=== PATIENT | female | born 1955 | race Native Hawaiian/Other Pacific Islander ===

== ENCOUNTER 2019-04-03 13:06 | Outpatient (CLI) | payer OTHER | END 2019-04-03 19:46 | disposition home or self-care (01) | LOC: RAD 13:06 | DX: M25.511 Pain in right shoulder (principal) ==

== ENCOUNTER 2020-06-01 10:03 | Outpatient (CLI) | payer OTHER | END 2020-06-01 20:55 | disposition home or self-care (01) | LOC: US 10:03 → RAD 10:03 | PROVIDERS: ATTEND Family Medicine | DX: I73.9 Peripheral vascular disease, unspecified (principal); M54.17 Radiculopathy, lumbosacral region ==

== ENCOUNTER 2020-06-10 14:33 | Outpatient (CLI) | payer OTHER | END 2020-06-10 20:02 | disposition home or self-care (01) | LOC: US 14:33 | PROVIDERS: ATTEND Nurse Practitioner Family | DX: I73.9 Peripheral vascular disease, unspecified (principal) ==

== ENCOUNTER 2020-06-25 08:29 | Outpatient (CLI) | payer OTHER | END 2020-06-25 20:52 | disposition home or self-care (01) | LOC: US 08:29 | PROVIDERS: ATTEND Student in an Organized Health Care Education/Training Program | DX: N28.89 Other specified disorders of kidney and ureter (principal) ==

== ENCOUNTER 2020-07-14 10:27 | Outpatient (CLI) | payer OTHER | END 2020-07-14 22:11 | disposition home or self-care (01) | LOC: MRI 10:27 | PROVIDERS: ATTEND Nurse Practitioner Family | DX: M47.896 Other spondylosis, lumbar region (principal) ==

== ENCOUNTER 2020-07-28 07:53 | Outpatient (CLI) | payer OTHER | END 2020-07-28 22:35 | disposition home or self-care (01) | LOC: US 07:53 | PROVIDERS: ATTEND Nurse Practitioner Family | DX: N28.1 Cyst of kidney, acquired (principal) ==

== ENCOUNTER 2020-09-02 12:21 | Outpatient (CLI) | payer OTHER | END 2020-09-02 20:29 | disposition home or self-care (01) | LOC: CT 12:21 | PROVIDERS: ATTEND Nurse Practitioner Family | DX: N28.1 Cyst of kidney, acquired (principal) | CPT/HCPCS: 36415; 82565; 84520 ==

== ENCOUNTER 2020-09-14 15:48 | Outpatient (CLI) | payer OTHER | END 2020-09-14 19:29 | disposition home or self-care (01) | LOC: RAD 15:48 | PROVIDERS: ATTEND Nurse Practitioner Family | DX: J18.9 Pneumonia, unspecified organism (principal) ==

== ENCOUNTER 2020-09-21 13:18 | Outpatient (CLI) | payer OTHER | END 2020-09-21 22:08 | disposition home or self-care (01) | LOC: US 13:18 | PROVIDERS: ATTEND Nurse Practitioner Primary Care | DX: R60.0 Localized edema (principal) ==

== ENCOUNTER 2020-09-24 12:10 | Outpatient (CLI) | payer OTHER | END 2020-09-24 23:00 | disposition home or self-care (01) | LOC: RAD 12:10 | PROVIDERS: ATTEND Nurse Practitioner Primary Care | DX: M25.561 Pain in right knee (principal); M25.562 Pain in left knee ==

== ENCOUNTER 2020-10-25 11:07 | Outpatient (CLI) | payer OTHER | END 2020-10-25 23:59 | disposition home or self-care (01) | LOC: NM 11:07 | PROVIDERS: ATTEND Family Medicine | DX: R60.0 Localized edema (principal) ==

== ENCOUNTER 2020-11-03 08:54 | Outpatient (CLI) | payer OTHER ==
[~2020-11-03] VITALS: Ht 152.4 cm; Wt 99.8 kg
== END 2020-11-03 22:10 | disposition home or self-care (01) ==
LOC: NM 08:54
PROVIDERS: ATTEND Family Medicine
DX: R60.0 Localized edema (principal); R06.02 Shortness of breath
CPT/HCPCS: A9500; J2785

== ENCOUNTER 2020-11-11 12:54 | Outpatient (CLI) | payer OTHER | END 2020-11-11 19:11 | disposition home or self-care (01) | LOC: RAD 12:54 | PROVIDERS: ATTEND Nurse Practitioner Family | DX: M79.671 Pain in right foot (principal); M25.561 Pain in right knee ==

== ENCOUNTER 2021-03-11 10:34 | Outpatient (CLI) | payer OTHER | END 2021-03-11 20:50 | disposition home or self-care (01) | LOC: MAMMO 10:34 | PROVIDERS: ATTEND Nurse Practitioner Family | DX: Z12.31 Encounter for screening mammogram for malignant neoplasm of breast (principal) ==

== ENCOUNTER 2021-03-29 13:36 | Outpatient (CLI) | payer OTHER | END 2021-03-29 19:06 | disposition home or self-care (01) | LOC: RAD 13:36 | PROVIDERS: ATTEND Family Medicine | DX: R05.8 Other specified cough (principal) ==

== ENCOUNTER 2021-07-01 10:24 | Outpatient (CLI) | payer OTHER | END 2021-07-01 20:02 | disposition home or self-care (01) | LOC: CT 10:24 | PROVIDERS: ATTEND Nurse Practitioner Family | DX: G44.52 New daily persistent headache (NDPH) (principal) ==

== ENCOUNTER 2021-07-25 15:08 | Outpatient (CLI) | payer OTHER ==
[2021-07-25 15:26] LABS: PLATELET COUNT 238 K/uL (152-353); POTASSIUM 3.5 mmol/L (3.6-5.2)
== END 2021-07-25 19:04 | disposition home or self-care (01) ==
LOC: LABW 15:08
PROVIDERS: ATTEND Nurse Practitioner Family
DX: R07.89 Other chest pain (principal)
CPT/HCPCS: 36415; 80053; 82550; 82553; 84484; 85027

== ENCOUNTER 2021-08-31 11:46 | Outpatient (CLI) | payer OTHER ==
[2021-08-31 12:44] LABS: POTASSIUM 4.2 mmol/L (3.6-5.2)
== END 2021-08-31 21:41 | disposition home or self-care (01) ==
LOC: RAD 11:46
PROVIDERS: ATTEND Nurse Practitioner Family
DX: Z79.899 Other long term (current) drug therapy (principal); S92.504A Nondisplaced unspecified fracture of right lesser toe(s), initial encounter for closed fracture; Y92.9 Unspecified place or not applicable
CPT/HCPCS: 36415; 80048; 83880

== ENCOUNTER 2021-11-07 17:48 | Outpatient (CLI) | payer OTHER ==
[2021-11-07 18:42] LABS: PLATELET COUNT 253 K/uL (152-353)
== END 2021-11-07 19:06 | disposition home or self-care (01) ==
LOC: RAD 17:48
PROVIDERS: ATTEND Nurse Practitioner Family
DX: U07.1 COVID-19 (principal)
CPT/HCPCS: 36415; 80053; 85027; 85379

== ENCOUNTER 2022-01-04 10:53 | Outpatient (CLI) | payer OTHER | END 2022-01-04 19:09 | disposition home or self-care (01) | LOC: US 10:53 | PROVIDERS: ATTEND Physician Assistant | DX: M79.89 Other specified soft tissue disorders (principal) ==

== ENCOUNTER 2022-02-01 12:20 | Outpatient (CLI) | payer OTHER | END 2022-02-01 19:12 | disposition home or self-care (01) | LOC: RAD 12:20 | PROVIDERS: ATTEND Physician Assistant | DX: M25.561 Pain in right knee (principal) ==

== ENCOUNTER 2022-06-07 10:52 | Outpatient (CLI) | payer OTHER | END 2022-06-07 20:04 | disposition home or self-care (01) | LOC: RAD 10:52 | PROVIDERS: ATTEND Physician Assistant | DX: M54.59 Other low back pain (principal) ==

== ENCOUNTER 2022-06-21 10:19 | Emergency (ER) | payer OTHER ==
[~2022-06-21] VITALS: Ht 152.4 cm; Wt 89.4 kg
[2022-06-21 10:29] VITALS: BP 179/83; TEMP 98
[2022-06-21 11:01] LABS: PLATELET COUNT 235 K/uL (152-353)
== END 2022-06-21 12:26 | disposition home or self-care (01) ==
LOC: ED 10:19
PROVIDERS: Emergency Medicine Emergency Medical Services
DX: H83.03 Labyrinthitis, bilateral (principal); R11.0 Nausea
CPT/HCPCS: 36415; 80053; 83735; 84484; 85027; 93005; 96361; 96374; 99284; J2405

== ENCOUNTER 2022-06-22 13:00 | Outpatient (CLI) | payer OTHER | END 2022-06-22 22:28 | disposition home or self-care (01) | LOC: US 13:00 | PROVIDERS: ATTEND Nurse Practitioner Family | DX: I63.81 Other cerebral infarction due to occlusion or stenosis of small artery (principal) ==

== ENCOUNTER 2022-07-06 14:48 | Emergency (ER) | payer OTHER ==
[~2022-07-06] VITALS: Ht 152.4 cm; Wt 89.4 kg
[2022-07-06 14:54] VITALS: TEMP 98.4
[2022-07-06 15:20] LABS: PLATELET COUNT 325 K/uL (152-353)
[2022-07-06 15:28] LABS: POTASSIUM 3.6 mmol/L (3.6-5.2)
[2022-07-06 16:22] VITALS: BP 137/87
== END 2022-07-06 17:05 | disposition home or self-care (01) ==
LOC: ED 14:48
PROVIDERS: Emergency Medicine
DX: I48.91 Unspecified atrial fibrillation (principal); Z11.52 Encounter for screening for COVID-19
CPT/HCPCS: 36415; 80053; 83735; 83880; 84484; 85027; 85379; 85610; 85730; 87635; 93005; 96375; 99284; J3490; U0003

== ENCOUNTER 2022-07-11 11:37 | Outpatient (CLI) | payer OTHER | END 2022-07-11 19:27 | disposition home or self-care (01) | LOC: RAD 11:37 | PROVIDERS: ATTEND Anesthesiology | DX: M48.061 Spinal stenosis, lumbar region without neurogenic claudication (principal) ==

== ENCOUNTER 2022-07-26 13:35 | Outpatient (CLI) | payer OTHER | END 2022-07-26 19:27 | disposition home or self-care (01) | LOC: MRI 13:35 | PROVIDERS: ATTEND Nurse Practitioner Family | DX: M48.061 Spinal stenosis, lumbar region without neurogenic claudication (principal); I63.81 Other cerebral infarction due to occlusion or stenosis of small artery ==

== ENCOUNTER 2022-08-14 16:04 | Outpatient (CLI) | payer OTHER | END 2022-08-14 20:47 | disposition home or self-care (01) | LOC: RAD 16:04 | PROVIDERS: ATTEND Nurse Practitioner Family | DX: M25.512 Pain in left shoulder (principal) ==

== ENCOUNTER 2022-10-16 12:30 | Outpatient (CLI) | payer OTHER | END 2022-10-16 19:35 | disposition home or self-care (01) | LOC: MRI 12:30 | PROVIDERS: ATTEND Physician Assistant | DX: M67.814 Other specified disorders of tendon, left shoulder (principal) ==

== ENCOUNTER 2022-11-09 09:54 | Outpatient (CLI) | payer OTHER | END 2022-11-09 19:21 | disposition home or self-care (01) | LOC: CT 09:54 | PROVIDERS: ATTEND Nurse Practitioner Family | DX: J32.8 Other chronic sinusitis (principal) ==

== ENCOUNTER 2023-01-10 14:17 | Outpatient (CLI) | payer OTHER | END 2023-01-10 19:19 | disposition home or self-care (01) | LOC: US 14:17 → EDBD 14:17 → US 19:19 | PROVIDERS: ATTEND Internal Medicine Cardiovascular Disease | DX: Z86.718 Personal history of other venous thrombosis and embolism (principal) ==

== ENCOUNTER 2023-06-17 10:47 | Inpatient (IN) | payer OTHER ==
[~2023-06-17] VITALS: Ht 152.4 cm; Wt 108.0 kg
[2023-06-17 10:59] VITALS: BP 139/73; TEMP 97.7
[2023-06-17 11:45] VITALS: BP 123/67
[2023-06-17 11:50] LABS: PLATELET COUNT 215 K/uL (152-353)
[2023-06-17 11:54] LABS: POTASSIUM 3.4 mmol/L (3.6-5.2)
[2023-06-17 11:59] LABS: PARTIAL THROMBOPLASTIN TIME 29.7 SECONDS (23.9-36.7)
[2023-06-17] MEDS ORDERED: SODIUM CHLORIDE 0.9% 1,000 ML IV ONE ×2 (12:37→13:01)
[2023-06-17] MEDS ORDERED: ACETAMINOPHEN 500 MG TAB PO ONE ×2 (12:37→13:01)
[2023-06-17] MEDS ORDERED: CLINDAMYCIN PHOSPHATE IN D5W 50 ML IVPB ONE (12:56)
[2023-06-17] MEDS ORDERED: CLINDAMYCIN PHOSPHATE IN D5W 50 ML IV ONE (13:01)
[2023-06-17] MEDS ORDERED: POTASSIUM CHLORIDE IN NACL 1,000 ML IV SCH (14:39)
[2023-06-17] MEDS ORDERED: POTASSIUM CHL 20 MEQ TAB PO SCH (14:39)
[2023-06-17] MEDS ORDERED: ELIQUIS5 MG PO (15:26)
[2023-06-17] MEDS ORDERED: PRAMIPEXOLE0.125 MG PO (15:27)
[2023-06-17] MEDS ORDERED: EUTHYROX75 MCG PO (15:28)
[2023-06-17] MEDS ORDERED: ALBUTEROL108 MCG/AC INH (15:31)
[2023-06-17] MEDS ORDERED: DICL75TA4 PO (15:36)
[2023-06-17 15:37] VITALS: BP 113/66; TEMP 97.7; Ht 152.4 cm; Wt 108.0 kg
[2023-06-17] MEDS ORDERED: AMLODIPINE BESYLATE PO (15:38)
[2023-06-17] MEDS ORDERED: FENOFIBRATE134 M1 PO (15:40)
[2023-06-17] MEDS ORDERED: ROPINIROLE1 MG PO (15:40)
[2023-06-17] MEDS ORDERED: BUMETANIDE2 MG PO (15:41)
[2023-06-17] MEDS ORDERED: FURO40TA93 PO (15:43)
[2023-06-17] MEDS ORDERED: GABAPENTIN600 M1 PO (15:44)
[2023-06-17] MEDS ORDERED: LOSA50TA PO (15:45)
[2023-06-17] MEDS ORDERED: AMIODARONE HYD200 MG PO (15:46)
[2023-06-17] MEDS ORDERED: BAC 50-325-40 M1 TAB PO ×2 (15:48→15:49)
[2023-06-17 16:00] VITALS: BP 118/69; TEMP 97.6
[2023-06-17 20:00] VITALS: BP 144/78; TEMP 97.9
[2023-06-17] MEDS ORDERED: CLINDAMYCIN PHOSPHATE IN D5W 50 ML IVPB SCH (21:00)
[2023-06-18] VITALS: BP 142/68; TEMP 97.5
[2023-06-18 05:30] LABS: PLATELET COUNT 181 K/uL (152-353)
[2023-06-18 05:39] LABS: POTASSIUM 4.1 mmol/L (3.6-5.2)
[2023-06-18 08:00] VITALS: BP 132/59; TEMP 98
[2023-06-18] MEDS ORDERED: [UNRECOGNIZED DRUG - OTHER] PO SCH (09:00)
[2023-06-18] MEDS ORDERED: LOSARTAN 50 MG TAB PO SCH (09:00)
[2023-06-18] MEDS ORDERED: AMIODARONE HCL 200 MG TAB PO SCH (09:00)
[2023-06-18] MEDS ORDERED: AMLODIPINE BESYLATE 5 MG TAB PO SCH (09:00)
[2023-06-18] MEDS ORDERED: LEVOTHYROXINE 75 MCG PO SCH (11:00)
[2023-06-18 12:00] VITALS: BP 115/71; TEMP 97.8
== END 2023-06-18 15:40 | disposition home or self-care (01) | DRG 603 ==
LOC: ED 10:47 → MED/SURG 12:46
PROVIDERS: ADMIT Nurse Practitioner Family; ATTEND Internal Medicine Endocrinology, Diabetes & Metabolism
DX: L03.115 Cellulitis of right lower limb (principal); N17.8 Other acute kidney failure; N18.9 Chronic kidney disease, unspecified; I73.9 Peripheral vascular disease, unspecified; E03.8 Other specified hypothyroidism; I48.91 Unspecified atrial fibrillation; Z79.01 Long term (current) use of anticoagulants; I50.9 Heart failure, unspecified; G62.89 Other specified polyneuropathies; E78.49 Other hyperlipidemia; I11.0 Hypertensive heart disease with heart failure; E86.0 Dehydration
CPT/HCPCS: 36415; 80048; 80053; 82550; 83605; 83880; 84484; 85027; 85379; 85610; 85730; 93005; 96361; 96365; 99284